=== PATIENT | male | born 1975 | race Caucasian/White ===

== ENCOUNTER 2016-10-19 10:31 | Day surgery (SDC) | payer OTHER ==
[2016-10-19] MEDS ORDERED: BUPivacaine Inj 0.5% PF (5mg/ml) 10ml vial ONE (10:42)
[2016-10-19] MEDS ORDERED: LIDOCAINE 2% 20 MG/ML - 20 ML VIAL ONE (10:42)
[2016-10-19 11:00] VITALS: RESP 16
--- NOTE | 2016-10-19 11:23 | GEN.OPNOTE ---
Operative Note Surgery Date: 10/19/16 Preoperative Diagnosis: Basal cell skin cancer Postoperative Diagnosis: Basis cell skin cancer Procedure: Excision was 5 cm greatest length they get the cancer and margins Surgeon: Lenny Mccurdy MD Anesthesia Provider: Jeffrey Greene CRNA Anesthesia Type: Local Estimated Blood Loss (mL): 2 Fluids: 10 mL of 2% Xylocaine with epinephrine Pathology: Excised skin was sent for pathology Indications: Patient had a nonhealing wound on the back of the neck that was excisional biopsied. He came back basal cell cancer with positive peripheral margins. Therefore the patient needs reexcision Operative Summary: Patient placed in left lateral decubitus position. Draped sterile fashion. Timeout performed per protocols. I then infiltrated local anesthetic around the previous incision. The total length of the incision to include margins was 5 cm. Have to do an elliptical incision using cautery get hemostasis and dissect the skin from the subcutaneous tissue. Adequate hemostasis closed the wound in layers with first layer was a 2-0 Vicryl simple interrupted suture. Skin closed with 4-0 Prolene continuous running stitch. Sterile dressings were applied.
[2016-10-19 12:30] VITALS: TEMP 98
== END 2016-10-19 11:35 | disposition home or self-care (01) ==
LOC: SDSC 10:31
PROVIDERS: ATTEND Surgery
DX: C44.91 Basal cell carcinoma of skin, unspecified (principal)
CPT/HCPCS: J2001; J3490